=== PATIENT | male | born 1960 | race Caucasian/White ===

== ENCOUNTER 2023-01-08 13:36 | Emergency (ER) | payer MEDICAID, OTHER ==
[2023-01-08] MEDS ORDERED: SODIUM CHLORIDE 0.9% 1,000 ML IV STA (14:03)
[2023-01-08 14:27] LABS: CALCIUM 9.7 mg/dL (8.5-10.3)
[2023-01-08] MEDS ORDERED: DEXAMETHASONE 10 MG/ML VIAL IVP STA (14:33)
--- NOTE | 2023-01-08 14:34 | ED Physician Documentation ---
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 He was already on a liquid diet but since the biopsy and endoscopy yesterday he has not been able to tolerate liquids at all. PD PAST MEDICAL HISTORY - Present Medications Home Medications: Ambulatory Orders Medication Instructions Recorded Confirmed Multivitamin with Iron 1 each PO DAILY 01/08/23 01/08/23 [Multivitamins with Iron] Pregabalin [Lyrica] 25 mg PO DAILY 01/08/23 01/08/23 Tamsulosin [Flomax] 0.4 mg PO DAILY 01/08/23 01/08/23 - Allergies Allergies/Adverse Reactions: Allergies Allergy/AdvReac Type Severity Reaction Status Date / Time No Known Drug Allergies Allergy Verified 01/08/23 13:59 PD ED PE NORMAL - Vitals Vital signs reviewed: Yes - General General: Alert and oriented X 3, No acute distress - HEENT HEENT: Pharynx benign - Abdomen Abdomen: Normal bowel sounds, Soft, Non tender - Neuro Neuro: Alert and oriented X 3, Normal speech Results - Vitals Vitals: Vital Signs - 24 hr 01/08/23 01/08/23 13:53 15:22 Temperature 36.4 C L Heart Rate 73 56 L Respiratory 16 16 Rate Blood Pressure 132/78 H 151/93 H O2 Saturation 98 99 Oxygen O2 Source Room air - Labs Labs: Laboratory Tests 01/08/23 14:10 Sodium 144 Potassium 4.0 Chloride 105 Carbon Dioxide 28 Anion Gap 11.0 BUN 16 Creatinine 1.0 Estimated GFR (MDRD) 76 L Glucose 107 H Calcium 9.7 PD Medical Decision Making - ED course ED course: 62-year-old gentleman with known esophageal mass now obstructing. He was given IV fluids and a BMP was checked and grossly normal. He was given some IV Decadron in the hopes that the anti-inflammatory effect would allow him to swallow. After an appropriate time after the Decadron he still had complete obstruction of his esophagus and was not able to swallow. I recommended transfer to [place] for definitive care or at least an attempt at feeding, our surgeons do PEG tubes but that would not be an appropriate approach here given that I doubt a scope could pass given his symptoms. He declined wanting to take himself down to [place] and prefers to sign out AMA after discussion. Departure - Departure Disposition: 01 Home, Self Care Clinical Impression: Esophageal obstruction Condition: Good Record reviewed to determine appropriate education?: Yes Comments: You were seen today for esophageal obstruction likely related to known cancer. You were administered 2 L of IV fluids and dexamethasone. This was in the hope that the dexamethasone would help you swallow, unfortunately does not seem to have worked very well. We have recommended direct transfer to [place] for definitive care which you have declined and are signing out AMA. Return if worse.
[2023-01-08 15:27] VITALS: BP 151/93
[2023-01-08] MEDS ORDERED: DEXTROSE 5%-LACTATED RINGERS 1,000 ML IV SCH (16:00)
== END 2023-01-08 17:21 | disposition home or self-care (01) ==
LOC: ED 13:36
DX: K22.2 Esophageal obstruction (principal)
CPT/HCPCS: 36415; 80048; 96361; 96374; 99283